=== PATIENT | female | born 1980 | race Hispanic/Latino ===

== ENCOUNTER 2021-04-10 00:22 | Emergency (ER) | payer OTHER, SELFPAY ==
[2021-04-10] MEDS ORDERED: Ibuprofen 200 MG TAB ONE (00:52)
== END 2021-04-10 01:37 | disposition home or self-care (01) ==
LOC: CSHERS 00:22
DX: S93.401A Sprain of unspecified ligament of right ankle, initial encounter (principal); F17.210 Nicotine dependence, cigarettes, uncomplicated

== ENCOUNTER 2024-03-04 18:12 | Emergency (ER) | payer SELFPAY ==
[2024-03-04] MEDS ORDERED: predniSONE 20 MG TAB ONE (19:11)
[2024-03-04] MEDS ORDERED: Benzonatate 100 MG CAP ONE (19:12)
== END 2024-03-04 19:55 | disposition home or self-care (01) ==
LOC: CSHERS 18:12
DX: J06.9 Acute upper respiratory infection, unspecified (principal); R05.9 Cough, unspecified; F17.210 Nicotine dependence, cigarettes, uncomplicated
CPT/HCPCS: 71046; J7512

== ENCOUNTER 2024-10-21 22:27 | Observation (INO) | payer SELFPAY ==
[~2024-10-21 22:27] MED LIST: Iopamidol 370 76% 100 ML VIAL ONE
[2024-10-21 22:52] LABS: #Basophils 0.06 10x3/uL (0.0-0.2); #Eosinophils 0.46 10x3/uL (0.0-0.5); #Monocytes 0.55 10x3/uL (0.0-1.1); #Neutrophils 3.37 10x3/uL (1.5-8.4); %Basophils 0.9 % (0.0-2.0); %Eosinophils 6.9 % (0.0-6.0); %Lymphocytes 32.8 % (18.0-47.0); %Monocytes 8.3 % (0.0-10.0); %Neutrophils 50.8 % (40.0-75.0); Hematocrit 29.1 % (34.9-44.5); Hemoglobin 8.6 g/dL (12.0-15.5); Mean Corpuscular Hemoglobin 19.7 pg (27.0-33.0); Mean Corpuscular Volume 66.6 fL (81.6-98.3); Platelet Count 453 10x3/uL (150-450); Red Blood Cell (RBC) Count 4.37 10x6/uL (3.90-5.03); White Blood Cell (WBC) Count 6.64 10x3/uL (3.5-10.5)
[2024-10-21 23:03] LABS: ALT (SGPT) 11 U/L (Less than 34); AST (SGOT) 18 U/L (11-34); Albumin 4.1 g/dL (3.1-4.5); Alkaline Phosphatase 56 U/L (40-110); Anion Gap 15 mmol/L (10-20); BUN (Urea Nitrogen) 15 mg/dL (7.0-18.7); Bilirubin, Total 0.3 mg/dL (0.3-1.2); Calc. Creatinine Clearance 0 mL/min (70-130); Calcium 8.5 mg/dL (7.8-10.44); Carbon Dioxide 22 mmol/L (22-29); Chloride 105 mmol/L (98-107); Globulin 3.3 g/dL (2.4-3.5); Glucose 101 mg/dL (70-105); Potassium 3.8 mmol/L (3.5-5.1); Sodium 138 mmol/L (136-145)
[2024-10-21 23:09] LABS: Troponin I 0.010 ng/mL (< 0.028)
[2024-10-21 23:58] LABS: Anisocytosis SLIGHT = 6-15 cells (100X) (0-5/hpf); MDiff Complete? YES; Microcytosis SLIGHT = 6-15 cells (100X) (0-5/hpf); Ovalocytes SLIGHT = 2-5 cells (100X) (0-1/hpf)
[2024-10-21 23:59] LABS: Platelet Adequacy Comment Appears Increased
[2024-10-22] MEDS ORDERED: Calcium Carbonate 500 MG ChewTAB PO PRN (02:06)
[2024-10-22] MEDS ORDERED: Acetaminophen 325 MG TAB PO PRN (02:06)
[2024-10-22] MEDS ORDERED: Melatonin 3 MG TAB PO PRN (02:06)
[2024-10-22] MEDS ORDERED: Senokot S 8.6-50 MG TAB PO PRN (02:06)
[2024-10-22] MEDS ORDERED: Ondansetron PF 4 MG/2 ML Vial IVP PRN (02:06)
[2024-10-22] MEDS ORDERED: Guaifenesin DM 100-10/5 ML UDCUP PO PRN (02:06)
[2024-10-22 02:55] LABS: Iron 16 ug/dL (50-170); Iron Binding Capacity, Total 450 mcg/dL (265-497)
[2024-10-22] MEDS ORDERED: AFRIN NASAL MIST 15 ML BOT ONE (02:57)
[2024-10-22] MEDS: Oxymetazoline HCl 0.05% (15 ML) NASAL SCH ×2 (04:29→10:51)
[2024-10-22] MEDS: Mometasone 200 MCG/Formoterol 5 MCG 60 PUFF INHALER INH SCH (07:33)
[2024-10-22] MEDS ORDERED: Pantoprazole 40 MG DR.TAB ONE (07:42)
[2024-10-22] MEDS: Pantoprazole 40 MG DR.TAB PO SCH (08:41)
[2024-10-22] MEDS: Ferrous Sulfate 325 MG TAB PO SCH (11:07)
[2024-10-22] MEDS: Multivit, Therapeutic 1 TAB PO SCH (11:08)
[2024-10-22 12:48] VITALS: BMI 23.1
[2024-10-22] MEDS: AFRIN NASAL MIST 15 ML BOT NS SCH (14:13)
[2024-10-23 08:45] VITALS: BP 100/71
[2024-10-23] MEDS: predniSONE 20 MG TAB PO SCH (08:46)
[2024-10-23] MEDS: Ferrous Sulfate 325 MG TAB PO SCH (12:40)
[2024-10-23 13:46] VITALS: TEMP 98
== END 2024-10-23 14:53 | disposition home or self-care (01) ==
LOC: CSHERS 22:27 → CSHERHOLD 10-22 02:19 → CSHTELE 10-22 12:13
PROVIDERS: ADMIT Student in an Organized Health Care Education/Training Program; ATTEND Hospitalist
DX: J45.901 Unspecified asthma with (acute) exacerbation (principal); J96.01 Acute respiratory failure with hypoxia; D50.9 Iron deficiency anemia, unspecified; R65.10 Systemic inflammatory response syndrome (SIRS) of non-infectious origin without acute organ dysfunction; Z87.891 Personal history of nicotine dependence; Z79.51 Long term (current) use of inhaled steroids; Z79.899 Other long term (current) drug therapy
CPT/HCPCS: 71045; 71275; 80053; 82728; 83540; 83550; 83880; 84484; 85025; 85379; 87426; 93005; 94640; 94644; 94664; 94760; 96374; 96376; G0378; J2919; J7512; J7620; Q9967